=== PATIENT | female | born 1950 | race Caucasian/White ===

== ENCOUNTER 2016-11-27 23:40 | Inpatient (IN) | payer MEDICARE, MEDICAID ==
[2016-11-28 00:24] VITALS: BP 180/70
[2016-11-28] MEDS ORDERED: Magnesium Hydroxide (MOM) 30 mL UDC PO PRN (00:44)
[2016-11-28] MEDS ORDERED: Maalox 30 mL Cup PO PRN (00:44)
[2016-11-28] MEDS ORDERED: Albuterol Nebulizer 2.5mg/3mL HHN PRN ×2 (00:53→13:57)
[2016-11-28] MEDS ORDERED: Multivitamin Tab PO SCH (09:00)
--- NOTE | 2016-11-28 13:57 | Internal Medicine Prog Note ---
Internal Medicine Subjective - Subjective Service Date: 11/28/16 ([id number] hnp dictated) Internal Medicine Objective - Physical Exam Vitals and I&O: Vital Signs Temp 97.1 F 11/28/16 06:44 Pulse 77 11/28/16 07:59 Resp 19 11/28/16 12:01 BP 148/97 11/28/16 06:44 Pulse Ox 96 11/28/16 07:59 Intake & Output 11/27/16 11/28/16 11/28/16 18:59 06:59 18:59 Intake Total 120 Balance 120 Weight (lbs) 198 lb Intake: Oral 120 Other: # Voids 2 Active Medications: Current Medications Acetaminophen (Tylenol) 650 mg PO Q4HR PRN PRN Reason: Mild Pain / Temp above 100 Stop: 01/27/17 00:43 Al Hydrox/Mg Hydrox/Simethicone (Maalox) 30 ml PO Q4HR PRN PRN Reason: GI DISTRESS Stop: 01/27/17 00:43 Albuterol Sulfate (Albuterol 2.5mg/3ml Neb Ud) 2.5 mg HHN Q4H PRN PRN Reason: Shortness of Breath Stop: 01/27/17 00:52 Lorazepam (Ativan) 0.5 mg PO Q4HR PRN; Protocol PRN Reason: Anxiety Stop: 12/28/16 00:43 Magnesium Hydroxide (Milk Of Magnesia) 30 ml PO HS PRN PRN Reason: Constipation Multivitamins/Vitamin C (Theragran) 1 tab PO DAILY [facility] Stop: 01/27/17 08:59 Last Admin: 11/28/16 09:28 Dose: 1 tab Sertraline HCl (Zoloft) 50 mg PO DAILY [facility] PRN Reason: Protocol Stop: 01/27/17 08:59 Last Admin: 11/28/16 09:28 Dose: 50 mg Zolpidem Tartrate (Ambien) 5 mg PO HS PRN PRN Reason: Insomnia Stop: 01/27/17 00:43 Internal Medicine Assmt/Plan - Assessment Assessment: DEPRESSION ASTHMA COPD CHRONIC LOW BACK PAIN CHRONIC LEG PAIN HYPERCHOLESTEREMIA FIBROMYALGIA HTN HYPOTHYROID CHANDAN SINUSITIS CHRONIC SPINAL STENOSIS SCHIZOAFFECTIVE DISORDER
--- NOTE | 2016-11-28 14:19 | History & Physical ---
ADMIT DATE: 11/28/2016 CHIEF COMPLAINT: Medical evaluation and clearance on the patient who was admitted inpatient Psych. HISTORY OF PRESENT ILLNESS: This is a 66-year-old female who is a transfer from [facility] here to the [facility] for depression. The patient has a past medical history of COPD, asthma, arthritis, acute renal failure, acute respiratory failure, bipolar disorder, depression, fibromyalgia, frequent falls, generalized weakness, hypertension, hypercholesterolemia, hypothyroid, chronic leg pain and chronic low back pain, sinusitis, chronic spinal stenosis, UTI. PAST MEDICAL HISTORY: As mentioned in history of present illness. PAST SURGICAL HISTORY: Unknown. FAMILY HISTORY: Noncontributory. SOCIAL HISTORY: The patient denies any smoking, drinking, or any illicit drug usage. REVIEW OF SYSTEMS: GENERAL: Denies any fevers, any chills. CARDIOVASCULAR: Denies any chest pain. RESPIRATORY: Denies any shortness of breath or cough. GASTROINTESTINAL: Denies any nausea, vomiting, abdominal pain. GENITOURINARY: Denies any increased frequency or dysuria. All other systems are reviewed by me and are negative. PHYSICAL EXAMINATION: GENERAL: The patient is well developed, well nourished, no acute distress. VITAL SIGNS: Temperature 97.1, heart rate 70, respirations 19, blood pressure ____/97, O2 95%. HEENT: Head; normocephalic, atraumatic. NECK: Supple. No mass. LUNGS: Clear bilaterally. HEART: Regular rate and rhythm. ABDOMEN: Soft, nontender. ASSESSMENT: 1. Depression. 2. Asthma. 3. Chronic obstructive pulmonary disease. 4. History of falls. 5. Fibromyalgia. 6. Hypertension. 7. Hypercholesterolemia. 8. Hypothyroidism. 9. Chronic leg pain and chronic back pain. 10. Obstructive sleep apnea. 11. Sinusitis. 12. Spinal stenosis. PLAN: We will put on p.r.n. bronchodilator, supplemental oxygen as needed. The patient to continue her home medications. We will continue to follow this patient. JOB# [id number]
[2016-11-28] MEDS: Budesonide 0.5 Mg/2 mL Ud HHN SCH (20:46)
[2016-11-28] MEDS: Guaifenesin DM 10 ML UDC PO SCH (20:56)
[2016-11-29] MEDS: Guaifenesin DM 10 ML UDC PO SCH ×4 (06:30→20:00)
[2016-11-29] MEDS: Budesonide 0.5 Mg/2 mL Ud HHN SCH ×2 (06:36→20:23)
[2016-11-29] MEDS: Levothyroxine 0.1 Mg Tab PO SCH (06:36)
[2016-11-29] MEDS ORDERED: HYDROCHLOROTHIAZIDE PO SCH (09:00)
[2016-11-29] MEDS ORDERED: LISINOPRIL PO SCH (09:00)
[2016-11-29] MEDS ORDERED: [UNRECOGNIZED DRUG - OTHER] PO SCH (09:00)
[2016-11-29] MEDS: Multivitamin Tab PO SCH (09:06)
[2016-11-29] MEDS: Pantoprazole 40 mg EC Tab PO SCH (09:08)
[2016-11-29] MEDS: Albuterol Nebulizer 2.5mg/3mL HHN PRN (09:49)
--- NOTE | 2016-11-29 12:07 | Progress Notes ---
DATE: 11/29/2016 PSYCHIATRIC PROGRESS NOTE TIME SEEN: 10:45 a.m. SUBJECTIVE: Staff was spoken to. The patient is interviewed. Mood is noted to be anxious. The patient's insight and judgment are noted to be still impaired. Impulse control is noted to be poor. The patient is still suicidal. No homicidal ideation is noted. The patient is currently on the Lamictal and Zoloft and has been able to tolerate the medications. No side effects to the medications are noted. ASSESSMENT: The patient is stabilizing. PLAN: The patient is going to be closely monitored. Once stabilized, the patient is going to be discharged to self, verbalize the concerns rather than to act out. The patient at this time is not presenting as a danger to self or others. JOB# [id number]
--- NOTE | 2016-11-29 12:54 | Internal Medicine Prog Note ---
Internal Medicine Subjective - Subjective Service Date: 11/29/16 Patient seen and examined:: with staff Patient is:: awake Per staff patient has:: no adverse event Internal Medicine Objective - Physical Exam Vitals and I&O: Vital Signs Temp 97.7 F 11/29/16 06:55 Pulse 73 11/29/16 09:50 Resp 18 11/29/16 09:50 BP 160/90 11/29/16 09:09 Pulse Ox 96 11/29/16 09:50 Intake & Output 11/28/16 11/29/16 11/29/16 18:59 06:59 18:59 Intake Total 240 Balance 240 Intake: Oral 240 Other: # Voids 3 Active Medications: Current Medications Acetaminophen (Tylenol) 650 mg PO Q4HR PRN PRN Reason: Mild Pain / Temp above 100 Stop: 01/27/17 00:43 Al Hydrox/Mg Hydrox/Simethicone (Maalox) 30 ml PO Q4HR PRN PRN Reason: GI DISTRESS Stop: 01/27/17 00:43 Albuterol Sulfate (Albuterol 2.5mg/3ml Neb Ud) 2.5 mg HHN Q4HR PRN PRN Reason: Shortness of Breath Stop: 01/27/17 13:56 Last Admin: 11/29/16 09:49 Dose: 2.5 mg Albuterol/Ipratropium (Duoneb Neb) 3 ml HHN Q6HRT [facility] Stop: 01/28/17 18:59 Budesonide (Pulmicort) 0.5 mg HHN BIDRT [facility] Stop: 01/27/17 18:59 Last Admin: 11/29/16 06:36 Dose: 0.5 mg Carvedilol (Coreg) 12.5 mg PO BID [facility] Stop: 01/27/17 16:59 Last Admin: 11/29/16 09:08 Dose: 12.5 mg Cholecalciferol (Vitamin D3) 2,000 iu PO DAILY [facility] Stop: 01/28/17 08:59 Last Admin: 11/29/16 09:10 Dose: 2,000 iu Gabapentin (Neurontin) 400 mg PO QID [facility] Stop: 01/27/17 16:59 Last Admin: 11/29/16 09:08 Dose: 400 mg Guaifenesin/Dextromethorphan (Robitussin Dm) 5 ml PO Q6H [facility] Stop: 01/27/17 13:59 Last Admin: 11/29/16 09:10 Dose: Not Given Hydrochlorothiazide (Hctz) 12.5 mg PO DAILY [facility] Stop: 01/28/17 08:59 Last Admin: 11/29/16 09:06 Dose: 12.5 mg Lamotrigine (Lamictal) 200 mg PO TID [facility] Stop: 01/27/17 13:59 Last Admin: 11/29/16 09:55 Dose: 200 mg Levothyroxine Sodium (Synthroid) 0.1 mg PO QDAC [facility] Stop: 01/28/17 07:29 Last Admin: 11/29/16 06:36 Dose: 0.1 mg Lisinopril (Zestril) 20 mg PO DAILY [facility] Stop: 01/28/17 08:59 Last Admin: 11/29/16 09:09 Dose: 20 mg Loratadine (Claritin) 10 mg PO DAILY [facility] Stop: 01/28/17 08:59 Last Admin: 11/29/16 09:10 Dose: 10 mg Lorazepam (Ativan) 0.5 mg PO Q4HR PRN; Protocol PRN Reason: Anxiety Stop: 12/28/16 00:43 Magnesium Hydroxide (Milk Of Magnesia) 30 ml PO HS PRN PRN Reason: Constipation Magnesium Oxide (Mag-Oxide) 400 mg PO HS [facility] Stop: 01/27/17 20:59 Last Admin: 11/28/16 20:56 Dose: 400 mg Miscellaneous (Cyclosporine [Restasis]) 0.05 % EACH EYE Q12HR [facility] Stop: 01/27/17 20:59 Montelukast Sodium (Singulair) 10 mg PO HS [facility] Stop: 01/27/17 20:59 Last Admin: 11/28/16 20:56 Dose: 10 mg Multivitamins/Vitamin C (Theragran) 1 tab PO DAILY [facility] Stop: 01/28/17 08:59 Last Admin: 11/29/16 09:06 Dose: 1 tab Pantoprazole Sodium (Protonix) 40 mg PO DAILY [facility] Stop: 01/28/17 08:59 Last Admin: 11/29/16 09:08 Dose: 40 mg Sertraline HCl (Zoloft) 50 mg PO DAILY [facility] PRN Reason: Protocol Stop: 09/25/17 08:59 Zolpidem Tartrate (Ambien) 5 mg PO HS PRN PRN Reason: Insomnia Stop: 01/27/17 00:43 Last Admin: 11/28/16 23:19 Dose: 5 mg General: alert, obese, NAD HEENT: NC/AT, PERRLA Lungs: CTAB Cardiovascular: RRR, Normal S1, Normal S2, without murmur Abdomen: soft, non-tender, non-distended Extremities: excoriation Neurological: no change, alert Internal Medicine Assmt/Plan - Assessment Assessment: DEPRESSION ASTHMA COPD CHRONIC LOW BACK PAIN CHRONIC LEG PAIN HYPERCHOLESTEREMIA FIBROMYALGIA HTN HYPOTHYROID CHANDAN SINUSITIS CHRONIC SPINAL STENOSIS SCHIZOAFFECTIVE DISORDER - Plan Plan: supplemental o2 as needed bronchodilators continue current tx
--- NOTE | 2016-11-29 13:04 | History & Physical ---
ADMIT DATE: 11/29/2016 PATIENT IDENTIFICATION: A 66-year-old female. REQUESTING PHYSICIAN: Dr. Pierre. CHIEF COMPLAINT: "I came here because of my depression, because I can walk." HISTORY OF PRESENT ILLNESS: This 66-year-old female has been followed by myself, as well as Dr. Pierre, presented initially at [facility] because the patient was feeling depressed and suicidal. The patient was evaluated and subsequently transferred to [facility]. PAST MEDICAL HISTORY: Remarkable for: 1. COPD. 2. Chronic back pain. 3. Status post pain pump placement. 4. Psychotic disorder. 5. DJD. 6. Adrenal adenoma. 7. Hypertension. 8. Hypothyroidism. 9. Hyperlipidemia. 10. History of allergic rhinosinusitis and chronic spinal stenosis. 11. Fibromyalgia. MEDICATIONS: Medication list has been reviewed and reconciled appropriately. ALLERGIES: The patient is not allergic to any medication. SOCIAL HISTORY: The patient lives by herself. The patient has no history of smoking cigarette, alcohol or drug use. FAMILY MEDICAL HISTORY: Remarkable for diabetes and hypertension. REVIEW OF SYSTEMS: The patient currently denies any headache, blurred vision, double vision, dysphagia, odynophagia, runny nose, stuffy nose, fever, chills, cough, chest pain, shortness of breath, palpitations, dizziness, nausea, vomiting, diarrhea, dysuria, hematuria, hematochezia, melena. No history of any seizure or syncopal episode. PHYSICAL EXAMINATION: GENERAL: The patient is alert, awake, oriented, lying in the bed without any acute distress. VITAL SIGNS: Temperature 97.6, pulse is 70, respiratory rate is 20, blood pressure 163/90. SKIN: Warm to touch. Very good skin turgor. No petechiae, no purpura. HEENT: Normocephalic, atraumatic. Extraocular muscles are intact. Tongue was pink and coated. Poor dentition noted. No oral lesions, no exudate. No sinus tenderness. External auditory canals and tympanic canals were well visualized. NECK: Supple, no JVD, no hepatojugular reflux. No lymphadenopathy, thyromegaly or carotid bruit. HEART: Both heart sounds are regular. No S3, no S4, no murmur. CHEST: Lung equal in expansion, no wheezing, no crackles. ABDOMEN: Soft. No guarding, no rigidity. Liver, spleen ____ palpable. No palpable mass. Palpable pain pump noted. Bowel sounds are present. EXTREMITIES: No edema, no cyanosis. NEUROLOGIC: Alert, awake, oriented to time, place, person, 2-12 cranial nerves are intact. Power in upper and lower extremities, 5+. Sensation to touch are intact. Babinskis in both toes are going down. No cerebral sign. AVAILABLE DIAGNOSTIC DATA: Has been reviewed. CLINICAL IMPRESSION: 1. Acute exacerbation of psychotic disorder. 2. Chronic obstructive pulmonary disease. 3. Hypertension. 4. Fibromyalgia. 5. Hyperlipidemia. 6. Hypothyroidism. 7. Degenerative joint disease. 8. Chronic pain syndrome. 9. History of myelodysplastic syndrome. 10. Fall risk. 11. History of recurrent psychiatric hospitalization. 12. Asthma. PLAN: 1. Psychiatric evaluation and management deferred to psychiatrist. 2. Appropriate home medicine reconciliation. 3. Fall precaution. 4. Pain management. 5. General nursing care. 6. We will continue to follow this patient during the stay at the [facility]. 7. Care plan has been reviewed and discussed with staff as well. JOB# [id number]
[2016-11-29] MEDS: Albuterol/Ipratropium Neb 3 ML AERS HHN SCH (20:29)
[2016-11-30] MEDS: Guaifenesin DM 10 ML UDC PO SCH ×5 (02:00→20:40)
[2016-11-30] MEDS: Levothyroxine 0.1 Mg Tab PO SCH (06:46)
[2016-11-30] MEDS: Albuterol/Ipratropium Neb 3 ML AERS HHN SCH ×2 (06:55→14:18)
[2016-11-30] MEDS: Budesonide 0.5 Mg/2 mL Ud HHN SCH ×2 (06:55→19:28)
[2016-11-30] MEDS: Pantoprazole 40 mg EC Tab PO SCH (09:25)
[2016-11-30] MEDS: Multivitamin Tab PO SCH (09:26)
--- NOTE | 2016-11-30 12:20 | Internal Medicine Prog Note ---
Internal Medicine Subjective - Subjective Service Date: 11/30/16 Patient is:: awake Per staff patient has:: no adverse event Internal Medicine Objective - Physical Exam Vitals and I&O: Vital Signs Temp 98.1 F 11/30/16 06:27 Pulse 60 11/30/16 09:25 Resp 20 11/30/16 07:02 BP 113/64 11/30/16 09:25 Pulse Ox 97 11/30/16 07:02 Intake & Output 11/29/16 11/30/16 11/30/16 18:59 06:59 18:59 Intake Total 1100 180 Balance 1100 180 Weight (lbs) 191 lb 4.8 oz Intake: Oral 1100 180 Other: # Voids 3 2 # Bowel Movements 1 0 Active Medications: Current Medications Acetaminophen (Tylenol) 650 mg PO Q4HR PRN PRN Reason: Mild Pain / Temp above 100 Stop: 01/27/17 00:43 Al Hydrox/Mg Hydrox/Simethicone (Maalox) 30 ml PO Q4HR PRN PRN Reason: GI DISTRESS Stop: 01/27/17 00:43 Albuterol Sulfate (Albuterol 2.5mg/3ml Neb Ud) 2.5 mg HHN Q4HR PRN PRN Reason: Shortness of Breath Stop: 01/27/17 13:56 Last Admin: 11/29/16 09:49 Dose: 2.5 mg Albuterol/Ipratropium (Duoneb Neb) 3 ml HHN Q6HRT [facility] Stop: 01/28/17 18:59 Last Admin: 11/30/16 06:55 Dose: 3 ml Budesonide (Pulmicort) 0.5 mg HHN BIDRT [facility] Stop: 01/27/17 18:59 Last Admin: 11/30/16 06:55 Dose: 0.5 mg Carvedilol (Coreg) 12.5 mg PO BID [facility] Stop: 01/27/17 16:59 Last Admin: 11/30/16 09:24 Dose: 12.5 mg Cholecalciferol (Vitamin D3) 2,000 iu PO DAILY [facility] Stop: 01/28/17 08:59 Last Admin: 11/30/16 09:23 Dose: 2,000 iu Gabapentin (Neurontin) 400 mg PO QID [facility] Stop: 01/27/17 16:59 Last Admin: 11/30/16 09:24 Dose: 400 mg Guaifenesin/Dextromethorphan (Robitussin Dm) 5 ml PO Q6H [facility] Stop: 01/27/17 13:59 Last Admin: 11/30/16 08:50 Dose: 5 ml Hydrochlorothiazide (Hctz) 12.5 mg PO DAILY [facility] Stop: 01/28/17 08:59 Last Admin: 11/30/16 09:24 Dose: 12.5 mg Isosorbide Mononitrate (Imdur) 30 mg PO DAILY [facility] Stop: 01/29/17 08:59 Last Admin: 11/30/16 09:25 Dose: 30 mg Lamotrigine (Lamictal) 200 mg PO TID [facility] Stop: 01/27/17 13:59 Last Admin: 11/30/16 09:26 Dose: 200 mg Levothyroxine Sodium (Synthroid) 0.1 mg PO QDAC [facility] Stop: 01/28/17 07:29 Last Admin: 11/30/16 06:46 Dose: 0.1 mg Lisinopril (Zestril) 20 mg PO DAILY [facility] Stop: 01/28/17 08:59 Last Admin: 11/30/16 09:23 Dose: 20 mg Loratadine (Claritin) 10 mg PO DAILY [facility] Stop: 01/28/17 08:59 Last Admin: 11/30/16 09:26 Dose: 10 mg Lorazepam (Ativan) 0.5 mg PO Q4HR PRN; Protocol PRN Reason: Anxiety Stop: 12/28/16 00:43 Last Admin: 11/29/16 14:25 Dose: 0.5 mg Magnesium Hydroxide (Milk Of Magnesia) 30 ml PO HS PRN PRN Reason: Constipation Magnesium Oxide (Mag-Oxide) 400 mg PO HS [facility] Stop: 01/27/17 20:59 Last Admin: 11/29/16 20:09 Dose: 400 mg Miscellaneous (Cyclosporine [Restasis]) 0.05 % EACH EYE Q12HR [facility] Stop: 01/27/17 20:59 Montelukast Sodium (Singulair) 10 mg PO HS [facility] Stop: 01/27/17 20:59 Last Admin: 11/29/16 20:09 Dose: 10 mg Multivitamins/Vitamin C (Theragran) 1 tab PO DAILY [facility] Stop: 01/28/17 08:59 Last Admin: 11/30/16 09:26 Dose: 1 tab Pantoprazole Sodium (Protonix) 40 mg PO DAILY [facility] Stop: 01/28/17 08:59 Last Admin: 11/30/16 09:25 Dose: 40 mg Sertraline HCl (Zoloft) 50 mg PO DAILY [facility] PRN Reason: Protocol Stop: 01/28/17 08:59 Last Admin: 11/30/16 09:23 Dose: 50 mg Zolpidem Tartrate (Ambien) 5 mg PO HS PRN PRN Reason: Insomnia Stop: 01/27/17 00:43 Last Admin: 11/28/16 23:19 Dose: 5 mg General: alert, obese, NAD HEENT: NC/AT, PERRLA Lungs: CTAB Cardiovascular: RRR, Normal S1, Normal S2, without murmur Abdomen: soft, non-tender, non-distended Extremities: excoriation Neurological: no change, alert Internal Medicine Assmt/Plan - Assessment Assessment: DEPRESSION ASTHMA COPD CHRONIC LOW BACK PAIN CHRONIC LEG PAIN HYPERCHOLESTEREMIA FIBROMYALGIA HTN HYPOTHYROID CHANDAN SINUSITIS CHRONIC SPINAL STENOSIS SCHIZOAFFECTIVE DISORDER - Plan Plan: supplemental o2 as needed bronchodilators continue current tx Nutritional Asmnt/Malnutr-PDOC - Dietary Evaluation Malnutrition Findings (Please click <Entered> for more info): Nutritional Asmnt/Malnutrition Start: 11/29/16 16: 29 Text: Status: Complete Freq: Document 11/29/16 16:29 GSUN (Rec: 11/29/16 16:33 [email or web address] [email or web address]) Nutritional Asmnt/Malnutrition Patient General Information Nutritional Screening Moderate Risk Screening Diagnosis Reason for visit: psychosis Pertinent Medical Hx/Surgical Hx COPD, asthma, arthritis, acute renal failure, acute respiratory failure, bipolar disorder, depression, fibromyalgia, frequent falls, generalized weakness, HTN, hyperchoelsterolemia, hypothyroid, chronic leg pain, chronic low back pain, sinusitis, chronic spinal stenosis, UTI Subjective Information 66 year old female. Pt ambulates in wheelchair. Pt was alert and pelasant during visit. Pt reported mandaeism preferences: no fish, no prok, no caffeine, FNS notified. Pt reported 250lb last year, pt has goal to lose weight, RD emphasized health weight loss goals, pt undersoot and agreed . Pt with good appetite, stated was hungry during visit . Teeth intact. Avg PO intake 100% of meals since adm, meeting nutritional needs. Current Diet Order/ Nutrition Support Low sodium Pertinent Medications Vitamin D3, Hctz, Synthroid, MOM, Mag-Oxide, Theragran, Protonix Pertinent Labs No current labs. Nutritional Hx/Data Height 5 ft 2 in Height (Calculated Centimeters) 157.5 Current Weight (lbs) 191 lb 4.8 oz Weight (Calculated Kilograms) 86.8 Weight (Calculated Grams) 69876.2 Usual body Weight (lbs) 195 [place] Body Weight 110 Weight Status Obese GI Symptoms Cultural/Ethnic/[employer]ist Belief [employer] preference: no pork, no fish, no caffeine. Skin Integrity/Comment: Nghia 19. Skin intact. Current %PO Good (75-100%) Estimated Nutritional Goals BEE in Kcals: Adj wt of IBW Calories/Kcals/Kg AdjBW 130.3lb/59.2kg Kcals Calculated 1480-1776kcal (25-30kcal/kg) Protein: Adj wt of IBW Protein Calculated 59g (1g/kg) Fluid: ml 1480-1776ml (1ml/kcal) Nutritional Problem 1. Problem Problem No nutritional problem at this time. Intervention/Recommendation Comments 1. Continue with current diet order. Avg PO intake is adequate. 2. Discussed health weight loss goals, pt understood and agreeable to plan. Expected Outcomes/Goals Expected Outcomes/Goals 1. PO intake continue to meet at least 75% of estimated nutritional needs.
[2016-11-30] MEDS: Polyvinyl Alcohol Ophth Soln 15 mL Bottle EACH EYE SCH ×2 (16:27→20:41)
[2016-11-30] MEDS: Albuterol Nebulizer 2.5mg/3mL HHN PRN (19:28)
--- NOTE | 2016-12-01 01:19 | Progress Notes ---
DATE: 11/30/2016 SUBJECTIVE: The patient was seen, chart reviewed, discussed with staff. The patient is feeling depressed, helpless at times, episodes of restlessness. The patient has multiple medical problems including asthma, COPD, history of falls, fibromyalgia, hypertension, spinal stenosis. The patient's ability to care for herself remains impaired. ASSESSMENT AND PLAN: We will continue hospitalization. Continue supportive measures. Continue medication management. Continue the Zoloft 50 mg daily. Monitor condition closely. JOB# [id number]
[2016-12-01] MEDS: Guaifenesin DM 10 ML UDC PO SCH ×4 (02:00→20:57)
[2016-12-01] MEDS: Albuterol/Ipratropium Neb 3 ML AERS HHN SCH ×4 (02:25→20:22)
[2016-12-01] MEDS: Budesonide 0.5 Mg/2 mL Ud HHN SCH ×2 (06:32→20:22)
[2016-12-01] MEDS: Levothyroxine 0.1 Mg Tab PO SCH (06:49)
[2016-12-01] MEDS: Multivitamin Tab PO SCH (08:39)
[2016-12-01] MEDS: Pantoprazole 40 mg EC Tab PO SCH (08:42)
[2016-12-01] MEDS: Polyvinyl Alcohol Ophth Soln 15 mL Bottle EACH EYE SCH ×3 (09:25→20:50)
--- NOTE | 2016-12-01 11:27 | Internal Medicine Prog Note ---
Internal Medicine Subjective - Subjective Service Date: 12/01/16 Patient is:: awake Per staff patient has:: no adverse event Internal Medicine Objective - Physical Exam Vitals and I&O: Vital Signs Temp 97.9 F 11/30/16 18:37 Pulse 65 12/01/16 08:42 Resp 16 12/01/16 10:52 BP 122/82 12/01/16 08:42 Pulse Ox 95 12/01/16 06:50 Intake & Output 11/30/16 12/01/16 12/01/16 18:59 06:59 18:59 Intake Total 1000 Balance 1000 Intake: Oral 1000 Other: # Voids 4 # Bowel Movements 1 Active Medications: Current Medications Acetaminophen (Tylenol) 650 mg PO Q4HR PRN PRN Reason: Mild Pain / Temp above 100 Stop: 01/27/17 00:43 Al Hydrox/Mg Hydrox/Simethicone (Maalox) 30 ml PO Q4HR PRN PRN Reason: GI DISTRESS Stop: 01/27/17 00:43 Albuterol Sulfate (Albuterol 2.5mg/3ml Neb Ud) 2.5 mg HHN Q4HR PRN PRN Reason: Shortness of Breath Stop: 01/27/17 13:56 Last Admin: 11/30/16 19:28 Dose: 2.5 mg Albuterol/Ipratropium (Duoneb Neb) 3 ml HHN Q6HRT [facility] Stop: 01/28/17 18:59 Last Admin: 12/01/16 06:32 Dose: 3 ml Artificial Tears (Artificial Tears Ophth Soln) 1 drop EACH EYE TID [facility] Stop: 01/27/17 20:59 Last Admin: 11/30/16 20:41 Dose: Not Given Budesonide (Pulmicort) 0.5 mg HHN BIDRT [facility] Stop: 01/27/17 18:59 Last Admin: 12/01/16 06:32 Dose: 0.5 mg Carvedilol (Coreg) 12.5 mg PO BID [facility] Stop: 01/27/17 16:59 Last Admin: 12/01/16 08:42 Dose: 12.5 mg Cholecalciferol (Vitamin D3) 2,000 iu PO DAILY [facility] Stop: 01/28/17 08:59 Last Admin: 12/01/16 08:41 Dose: 2,000 iu Gabapentin (Neurontin) 400 mg PO QID [facility] Stop: 01/27/17 16:59 Last Admin: 12/01/16 08:39 Dose: 400 mg Guaifenesin/Dextromethorphan (Robitussin Dm) 5 ml PO Q6H [facility] Stop: 01/27/17 13:59 Last Admin: 12/01/16 08:39 Dose: 5 ml Hydrochlorothiazide (Hctz) 12.5 mg PO DAILY [facility] Stop: 01/28/17 08:59 Last Admin: 12/01/16 08:39 Dose: 12.5 mg Isosorbide Mononitrate (Imdur) 30 mg PO DAILY [facility] Stop: 01/29/17 08:59 Last Admin: 12/01/16 08:41 Dose: 30 mg Lamotrigine (Lamictal) 200 mg PO TID [facility] Stop: 01/27/17 13:59 Last Admin: 12/01/16 08:41 Dose: 200 mg Levothyroxine Sodium (Synthroid) 0.1 mg PO QDAC [facility] Stop: 01/28/17 07:29 Last Admin: 12/01/16 06:49 Dose: 0.1 mg Lisinopril (Zestril) 20 mg PO DAILY [facility] Stop: 01/28/17 08:59 Last Admin: 12/01/16 08:42 Dose: 20 mg Loratadine (Claritin) 10 mg PO DAILY [facility] Stop: 01/28/17 08:59 Last Admin: 12/01/16 08:41 Dose: 10 mg Lorazepam (Ativan) 0.5 mg PO Q4HR PRN; Protocol PRN Reason: Anxiety Stop: 12/28/16 00:43 Last Admin: 11/29/16 14:25 Dose: 0.5 mg Magnesium Hydroxide (Milk Of Magnesia) 30 ml PO HS PRN PRN Reason: Constipation Magnesium Oxide (Mag-Oxide) 400 mg PO HS [facility] Stop: 01/27/17 20:59 Last Admin: 11/30/16 20:42 Dose: 400 mg Montelukast Sodium (Singulair) 10 mg PO HS [facility] Stop: 01/27/17 20:59 Last Admin: 11/30/16 20:42 Dose: 10 mg Multivitamins/Vitamin C (Theragran) 1 tab PO DAILY [facility] Stop: 01/28/17 08:59 Last Admin: 12/01/16 08:39 Dose: 1 tab Pantoprazole Sodium (Protonix) 40 mg PO DAILY [facility] Stop: 01/28/17 08:59 Last Admin: 12/01/16 08:42 Dose: 40 mg Sertraline HCl (Zoloft) 50 mg PO DAILY [facility] PRN Reason: Protocol Stop: 01/28/17 08:59 Last Admin: 12/01/16 08:42 Dose: 50 mg Zolpidem Tartrate (Ambien) 5 mg PO HS PRN PRN Reason: Insomnia Stop: 01/27/17 00:43 Last Admin: 11/28/16 23:19 Dose: 5 mg General: alert, obese, NAD HEENT: NC/AT, PERRLA Lungs: CTAB Cardiovascular: RRR, Normal S1, Normal S2, without murmur Abdomen: soft, non-tender, non-distended Extremities: excoriation Neurological: no change, alert Internal Medicine Assmt/Plan - Assessment Assessment: DEPRESSION ASTHMA COPD CHRONIC LOW BACK PAIN CHRONIC LEG PAIN HYPERCHOLESTEREMIA FIBROMYALGIA HTN HYPOTHYROID CHANDAN SINUSITIS CHRONIC SPINAL STENOSIS SCHIZOAFFECTIVE DISORDER - Plan Plan: supplemental o2 as needed bronchodilators continue current tx Nutritional Asmnt/Malnutr-PDOC - Dietary Evaluation Malnutrition Findings (Please click <Entered> for more info): Nutritional Asmnt/Malnutrition Start: 11/29/16 16: 29 Text: Status: Complete Freq: Document 11/29/16 16:29 GSUN (Rec: 11/29/16 16:33 GSUN [email or web address]) Nutritional Asmnt/Malnutrition Patient General Information Nutritional Screening Moderate Risk Screening Diagnosis Reason for visit: psychosis Pertinent Medical Hx/Surgical Hx COPD, asthma, arthritis, acute renal failure, acute respiratory failure, bipolar disorder, depression, fibromyalgia, frequent falls, generalized weakness, HTN, hyperchoelsterolemia, hypothyroid, chronic leg pain, chronic low back pain, sinusitis, chronic spinal stenosis, UTI Subjective Information 66 year old female. Pt ambulates in wheelchair. Pt was alert and pelasant during visit. Pt reported buddhist preferences: no fish, no prok, no caffeine, FNS notified. Pt reported 250lb last year, pt has goal to lose weight, RD emphasized health weight loss goals, pt undersoot and agreed . Pt with good appetite, stated was hungry during visit . Teeth intact. Avg PO intake 100% of meals since adm, meeting nutritional needs. Current Diet Order/ Nutrition Support Low sodium Pertinent Medications Vitamin D3, Hctz, Synthroid, MOM, Mag-Oxide, Theragran, Protonix Pertinent Labs No current labs. Nutritional Hx/Data Height 5 ft 2 in Height (Calculated Centimeters) 157.5 Current Weight (lbs) 191 lb 4.8 oz Weight (Calculated Kilograms) 86.8 Weight (Calculated Grams) 98852.2 Usual body Weight (lbs) 195 [place] Body Weight 110 Weight Status Obese GI Symptoms Cultural/Ethnic/Roman Catholic Belief Roman Catholic preference: no pork, no fish, no caffeine. Skin Integrity/Comment: Nghia 19. Skin intact. Current %PO Good (75-100%) Estimated Nutritional Goals BEE in Kcals: Adj wt of IBW Calories/Kcals/Kg AdjBW 130.3lb/59.2kg Kcals Calculated 1480-1776kcal (25-30kcal/kg) Protein: Adj wt of IBW Protein Calculated 59g (1g/kg) Fluid: ml 1480-1776ml (1ml/kcal) Nutritional Problem 1. Problem Problem No nutritional problem at this time. Intervention/Recommendation Comments 1. Continue with current diet order. Avg PO intake is adequate. 2. Discussed health weight loss goals, pt understood and agreeable to plan. Expected Outcomes/Goals Expected Outcomes/Goals 1. PO intake continue to meet at least 75% of estimated nutritional needs.
--- NOTE | 2016-12-01 21:14 | Progress Notes ---
DATE: 12/01/2016 SUBJECTIVE: The patient was seen, discussed with staff. Remains isolative, still with psychomotor slowing still feeling depressed, sad facial expression, elevated interested in her surroundings. Thought process is concrete. ASSESSMENT: The patient is still severely depressed. PLAN: Continue hospitalization. Continue medication management. Continue supportive measures. Continue Zoloft 50 mg daily. JOB# [id number]
[2016-12-02] MEDS: Albuterol/Ipratropium Neb 3 ML AERS HHN SCH ×4 (00:58→20:13)
[2016-12-02] MEDS: Guaifenesin DM 10 ML UDC PO SCH ×4 (02:00→20:03)
[2016-12-02] MEDS: Budesonide 0.5 Mg/2 mL Ud HHN SCH ×2 (07:13→20:12)
[2016-12-02] MEDS: Polyvinyl Alcohol Ophth Soln 15 mL Bottle EACH EYE SCH ×3 (08:42→20:04)
[2016-12-02] MEDS: Pantoprazole 40 mg EC Tab PO SCH (08:45)
[2016-12-02] MEDS: Multivitamin Tab PO SCH (08:45)
--- NOTE | 2016-12-02 13:22 | Internal Medicine Prog Note ---
Internal Medicine Subjective - Subjective Service Date: 12/02/16 Patient is:: awake Per staff patient has:: no adverse event Internal Medicine Objective - Physical Exam Vitals and I&O: Vital Signs Temp 97.1 F 12/02/16 06:28 Pulse 72 12/02/16 08:44 Resp 16 12/02/16 07:40 BP 137/76 12/02/16 08:44 Pulse Ox 98 12/02/16 07:40 Intake & Output 12/01/16 12/02/16 12/02/16 18:59 06:59 18:59 Intake Total 1800 120 Balance 1800 120 Intake: Oral 1800 120 Other: # Voids 4 3 # Bowel Movements 0 Active Medications: Current Medications Acetaminophen (Tylenol) 650 mg PO Q4HR PRN PRN Reason: Mild Pain / Temp above 100 Stop: 01/27/17 00:43 Al Hydrox/Mg Hydrox/Simethicone (Maalox) 30 ml PO Q4HR PRN PRN Reason: GI DISTRESS Stop: 01/27/17 00:43 Albuterol Sulfate (Albuterol 2.5mg/3ml Neb Ud) 2.5 mg HHN Q4HR PRN PRN Reason: Shortness of Breath Stop: 01/27/17 13:56 Last Admin: 11/30/16 19:28 Dose: 2.5 mg Albuterol/Ipratropium (Duoneb Neb) 3 ml HHN Q6HRT [facility] Stop: 01/28/17 18:59 Last Admin: 12/02/16 13:21 Dose: 3 ml Artificial Tears (Artificial Tears Ophth Soln) 1 drop EACH EYE TID [facility] Stop: 01/27/17 20:59 Last Admin: 12/02/16 08:42 Dose: 1 drop Budesonide (Pulmicort) 0.5 mg HHN BIDRT [facility] Stop: 01/27/17 18:59 Last Admin: 12/02/16 07:13 Dose: 0.5 mg Carvedilol (Coreg) 12.5 mg PO BID [facility] Stop: 01/27/17 16:59 Last Admin: 12/02/16 08:42 Dose: 12.5 mg Cholecalciferol (Vitamin D3) 2,000 iu PO DAILY [facility] Stop: 01/28/17 08:59 Last Admin: 12/02/16 08:43 Dose: 2,000 iu Gabapentin (Neurontin) 400 mg PO QID [facility] Stop: 01/27/17 16:59 Last Admin: 12/02/16 08:43 Dose: 400 mg Guaifenesin/Dextromethorphan (Robitussin Dm) 5 ml PO Q6H [facility] Stop: 01/27/17 13:59 Last Admin: 12/02/16 08:42 Dose: Not Given Hydrochlorothiazide (Hctz) 12.5 mg PO DAILY [facility] Stop: 01/28/17 08:59 Last Admin: 12/02/16 08:44 Dose: 12.5 mg Isosorbide Mononitrate (Imdur) 30 mg PO DAILY [facility] Stop: 01/29/17 08:59 Last Admin: 12/02/16 08:44 Dose: 30 mg Lamotrigine (Lamictal) 200 mg PO TID [facility] Stop: 01/27/17 13:59 Last Admin: 12/02/16 08:41 Dose: 200 mg Levothyroxine Sodium (Synthroid) 0.1 mg PO QDAC [facility] Stop: 01/28/17 07:29 Last Admin: 12/01/16 06:49 Dose: 0.1 mg Lisinopril (Zestril) 20 mg PO DAILY [facility] Stop: 01/28/17 08:59 Last Admin: 12/02/16 08:44 Dose: 20 mg Loratadine (Claritin) 10 mg PO DAILY [facility] Stop: 01/28/17 08:59 Last Admin: 12/02/16 08:45 Dose: 10 mg Lorazepam (Ativan) 0.5 mg PO Q4HR PRN; Protocol PRN Reason: Anxiety Stop: 12/28/16 00:43 Last Admin: 11/29/16 14:25 Dose: 0.5 mg Magnesium Hydroxide (Milk Of Magnesia) 30 ml PO HS PRN PRN Reason: Constipation Magnesium Oxide (Mag-Oxide) 400 mg PO HS [facility] Stop: 01/27/17 20:59 Last Admin: 12/01/16 20:51 Dose: 400 mg Montelukast Sodium (Singulair) 10 mg PO HS [facility] Stop: 01/27/17 20:59 Last Admin: 12/01/16 20:51 Dose: 10 mg Multivitamins/Vitamin C (Theragran) 1 tab PO DAILY [facility] Stop: 01/28/17 08:59 Last Admin: 12/02/16 08:45 Dose: 1 tab Pantoprazole Sodium (Protonix) 40 mg PO DAILY [facility] Stop: 01/28/17 08:59 Last Admin: 12/02/16 08:45 Dose: 40 mg Sertraline HCl (Zoloft) 50 mg PO DAILY [facility] PRN Reason: Protocol Stop: 01/28/17 08:59 Last Admin: 12/02/16 08:45 Dose: 50 mg Zolpidem Tartrate (Ambien) 5 mg PO HS PRN PRN Reason: Insomnia Stop: 01/27/17 00:43 Last Admin: 12/02/16 02:57 Dose: 5 mg General: alert, obese, NAD HEENT: NC/AT, PERRLA Lungs: CTAB Cardiovascular: RRR, Normal S1, Normal S2, without murmur Abdomen: soft, non-tender, non-distended Extremities: excoriation Neurological: no change, alert Internal Medicine Assmt/Plan - Assessment Assessment: DEPRESSION ASTHMA COPD CHRONIC LOW BACK PAIN CHRONIC LEG PAIN HYPERCHOLESTEREMIA FIBROMYALGIA HTN HYPOTHYROID CHANDAN SINUSITIS CHRONIC SPINAL STENOSIS SCHIZOAFFECTIVE DISORDER - Plan Plan: supplemental o2 as needed bronchodilators continue current tx Nutritional Asmnt/Malnutr-PDOC - Dietary Evaluation Malnutrition Findings (Please click <Entered> for more info): Nutritional Asmnt/Malnutrition Start: 11/29/16 16: 29 Text: Status: Complete Freq: Document 11/29/16 16:29 GSUN (Rec: 11/29/16 16:33 GSUN [email or web address]) Nutritional Asmnt/Malnutrition Patient General Information Nutritional Screening Moderate Risk Screening Diagnosis Reason for visit: psychosis Pertinent Medical Hx/Surgical Hx COPD, asthma, arthritis, acute renal failure, acute respiratory failure, bipolar disorder, depression, fibromyalgia, frequent falls, generalized weakness, HTN, hyperchoelsterolemia, hypothyroid, chronic leg pain, chronic low back pain, sinusitis, chronic spinal stenosis, UTI Subjective Information 66 year old female. Pt ambulates in wheelchair. Pt was alert and pelasant during visit. Pt reported buddhist preferences: no fish, no prok, no caffeine, FNS notified. Pt reported 250lb last year, pt has goal to lose weight, RD emphasized health weight loss goals, pt undersoot and agreed . Pt with good appetite, stated was hungry during visit . Teeth intact. Avg PO intake 100% of meals since adm, meeting nutritional needs. Current Diet Order/ Nutrition Support Low sodium Pertinent Medications Vitamin D3, Hctz, Synthroid, MOM, Mag-Oxide, Theragran, Protonix Pertinent Labs No current labs. Nutritional Hx/Data Height 5 ft 2 in Height (Calculated Centimeters) 157.5 Current Weight (lbs) 191 lb 4.8 oz Weight (Calculated Kilograms) 86.8 Weight (Calculated Grams) 33541.2 Usual body Weight (lbs) 195 [place] Body Weight 110 Weight Status Obese GI Symptoms Cultural/Ethnic/Hindu Belief Hindu preference: no pork, no fish, no caffeine. Skin Integrity/Comment: Nghia 19. Skin intact. Current %PO Good (75-100%) Estimated Nutritional Goals BEE in Kcals: Adj wt of IBW Calories/Kcals/Kg AdjBW 130.3lb/59.2kg Kcals Calculated 1480-1776kcal (25-30kcal/kg) Protein: Adj wt of IBW Protein Calculated 59g (1g/kg) Fluid: ml 1480-1776ml (1ml/kcal) Nutritional Problem 1. Problem Problem No nutritional problem at this time. Intervention/Recommendation Comments 1. Continue with current diet order. Avg PO intake is adequate. 2. Discussed health weight loss goals, pt understood and agreeable to plan. Expected Outcomes/Goals Expected Outcomes/Goals 1. PO intake continue to meet at least 75% of estimated nutritional needs.
[2016-12-03] MEDS: Albuterol/Ipratropium Neb 3 ML AERS HHN SCH ×3 (01:40→18:43)
--- NOTE | 2016-12-03 03:56 | Progress Notes ---
DATE: 12/02/2016 SUBJECTIVE: The patient was seen, discussed with staff, chart reviewed. Still feeling depressed, anxious, still isolative, lack of interested in her surroundings . The patient's insight remains limited. The patient's p.o. intake . ASSESSMENT: The patient continues to be severely depressed. PLAN: We will continue hospitalization, continue stabilization, continue Zoloft 50 mg daily. [facility]# [id number]
[2016-12-03] MEDS: Guaifenesin DM 10 ML UDC PO SCH ×5 (06:33→21:44)
[2016-12-03] MEDS: Levothyroxine 0.1 Mg Tab PO SCH (06:34)
[2016-12-03] MEDS: Budesonide 0.5 Mg/2 mL Ud HHN SCH ×2 (07:18→18:43)
[2016-12-03] MEDS: Pantoprazole 40 mg EC Tab PO SCH (09:06)
[2016-12-03] MEDS: Multivitamin Tab PO SCH (09:06)
[2016-12-03] MEDS: Polyvinyl Alcohol Ophth Soln 15 mL Bottle EACH EYE SCH ×3 (09:06→21:45)
--- NOTE | 2016-12-03 13:10 | Internal Medicine Prog Note ---
Internal Medicine Subjective - Subjective Service Date: 12/03/16 Patient is:: awake Per staff patient has:: no adverse event Internal Medicine Objective - Physical Exam Vitals and I&O: Vital Signs Temp 97.2 F 12/03/16 06:33 Pulse 64 12/03/16 07:18 Resp 18 12/03/16 07:18 BP 147/64 12/03/16 06:33 Pulse Ox 96 12/03/16 07:18 Intake & Output 12/02/16 12/03/16 12/03/16 18:59 06:59 18:59 Intake Total 120 Balance 120 Intake: Oral 120 Other: # Voids 3 Active Medications: Current Medications Acetaminophen (Tylenol) 650 mg PO Q4HR PRN PRN Reason: Mild Pain / Temp above 100 Stop: 01/27/17 00:43 Al Hydrox/Mg Hydrox/Simethicone (Maalox) 30 ml PO Q4HR PRN PRN Reason: GI DISTRESS Stop: 01/27/17 00:43 Albuterol Sulfate (Albuterol 2.5mg/3ml Neb Ud) 2.5 mg HHN Q4HR PRN PRN Reason: Shortness of Breath Stop: 01/27/17 13:56 Last Admin: 11/30/16 19:28 Dose: 2.5 mg Albuterol/Ipratropium (Duoneb Neb) 3 ml HHN Q6HRT [facility] Stop: 01/28/17 18:59 Last Admin: 12/03/16 01:40 Dose: 3 ml Artificial Tears (Artificial Tears Ophth Soln) 1 drop EACH EYE TID [facility] Stop: 01/27/17 20:59 Last Admin: 12/03/16 09:06 Dose: 1 drop Budesonide (Pulmicort) 0.5 mg HHN BIDRT [facility] Stop: 01/27/17 18:59 Last Admin: 12/03/16 07:18 Dose: 0.5 mg Carvedilol (Coreg) 12.5 mg PO BID [facility] Stop: 01/27/17 16:59 Last Admin: 12/03/16 09:11 Dose: Not Given Cholecalciferol (Vitamin D3) 2,000 iu PO DAILY [facility] Stop: 01/28/17 08:59 Last Admin: 12/03/16 09:05 Dose: 2,000 iu Gabapentin (Neurontin) 400 mg PO QID [facility] Stop: 01/27/17 16:59 Last Admin: 12/03/16 09:06 Dose: 400 mg Guaifenesin/Dextromethorphan (Robitussin Dm) 5 ml PO Q6H [facility] Stop: 01/27/17 13:59 Last Admin: 12/03/16 09:06 Dose: Not Given Hydrochlorothiazide (Hctz) 12.5 mg PO DAILY [facility] Stop: 01/28/17 08:59 Last Admin: 12/03/16 09:07 Dose: Not Given Isosorbide Mononitrate (Imdur) 30 mg PO DAILY [facility] Stop: 01/29/17 08:59 Last Admin: 12/03/16 09:07 Dose: Not Given Lamotrigine (Lamictal) 200 mg PO TID [facility] Stop: 01/27/17 13:59 Last Admin: 12/03/16 09:09 Dose: Not Given Levothyroxine Sodium (Synthroid) 0.1 mg PO QDAC [facility] Stop: 01/28/17 07:29 Last Admin: 12/03/16 06:34 Dose: 0.1 mg Lisinopril (Zestril) 20 mg PO DAILY [facility] Stop: 01/28/17 08:59 Last Admin: 12/03/16 09:07 Dose: Not Given Loratadine (Claritin) 10 mg PO DAILY [facility] Stop: 01/28/17 08:59 Last Admin: 12/03/16 09:06 Dose: 10 mg Lorazepam (Ativan) 0.5 mg PO Q4HR PRN; Protocol PRN Reason: Anxiety Stop: 12/28/16 00:43 Last Admin: 12/03/16 10:19 Dose: 0.5 mg Magnesium Hydroxide (Milk Of Magnesia) 30 ml PO HS PRN PRN Reason: Constipation Magnesium Oxide (Mag-Oxide) 400 mg PO HS [facility] Stop: 01/27/17 20:59 Last Admin: 12/02/16 20:04 Dose: 400 mg Montelukast Sodium (Singulair) 10 mg PO HS [facility] Stop: 01/27/17 20:59 Last Admin: 12/02/16 20:04 Dose: 10 mg Multivitamins/Vitamin C (Theragran) 1 tab PO DAILY [facility] Stop: 01/28/17 08:59 Last Admin: 12/03/16 09:06 Dose: 1 tab Pantoprazole Sodium (Protonix) 40 mg PO DAILY [facility] Stop: 01/28/17 08:59 Last Admin: 12/03/16 09:06 Dose: 40 mg Sertraline HCl (Zoloft) 50 mg PO DAILY [facility] PRN Reason: Protocol Stop: 01/28/17 08:59 Last Admin: 12/03/16 09:05 Dose: 50 mg Zolpidem Tartrate (Ambien) 5 mg PO HS PRN PRN Reason: Insomnia Stop: 01/27/17 00:43 Last Admin: 12/02/16 20:04 Dose: 5 mg General: alert, obese, NAD HEENT: NC/AT, PERRLA Lungs: CTAB Cardiovascular: RRR, Normal S1, Normal S2, without murmur Abdomen: soft, non-tender, non-distended Extremities: excoriation Neurological: no change, alert Internal Medicine Assmt/Plan - Assessment Assessment: DEPRESSION ASTHMA COPD CHRONIC LOW BACK PAIN CHRONIC LEG PAIN HYPERCHOLESTEREMIA FIBROMYALGIA HTN HYPOTHYROID CHANDAN SINUSITIS CHRONIC SPINAL STENOSIS SCHIZOAFFECTIVE DISORDER - Plan Plan: supplemental o2 as needed bronchodilators continue current tx Nutritional Asmnt/Malnutr-PDOC - Dietary Evaluation Malnutrition Findings (Please click <Entered> for more info): Nutritional Asmnt/Malnutrition Start: 11/29/16 16: 29 Text: Status: Complete Freq: Document 11/29/16 16:29 GSUN (Rec: 11/29/16 16:33 GSUN [email or web address]) Nutritional Asmnt/Malnutrition Patient General Information Nutritional Screening Moderate Risk Screening Diagnosis Reason for visit: psychosis Pertinent Medical Hx/Surgical Hx COPD, asthma, arthritis, acute renal failure, acute respiratory failure, bipolar disorder, depression, fibromyalgia, frequent falls, generalized weakness, HTN, hyperchoelsterolemia, hypothyroid, chronic leg pain, chronic low back pain, sinusitis, chronic spinal stenosis, UTI Subjective Information 66 year old female. Pt ambulates in wheelchair. Pt was alert and pelasant during visit. Pt reported latter-day preferences: no fish, no prok, no caffeine, FNS notified. Pt reported 250lb last year, pt has goal to lose weight, RD emphasized health weight loss goals, pt undersoot and agreed . Pt with good appetite, stated was hungry during visit . Teeth intact. Avg PO intake 100% of meals since adm, meeting nutritional needs. Current Diet Order/ Nutrition Support Low sodium Pertinent Medications Vitamin D3, Hctz, Synthroid, MOM, Mag-Oxide, Theragran, Protonix Pertinent Labs No current labs. Nutritional Hx/Data Height 5 ft 2 in Height (Calculated Centimeters) 157.5 Current Weight (lbs) 191 lb 4.8 oz Weight (Calculated Kilograms) 86.8 Weight (Calculated Grams) 69379.2 Usual body Weight (lbs) 195 [place] Body Weight 110 Weight Status Obese GI Symptoms Cultural/Ethnic/Scientologist Belief Scientologist preference: no pork, no fish, no caffeine. Skin Integrity/Comment: Nghia 19. Skin intact. Current %PO Good (75-100%) Estimated Nutritional Goals BEE in Kcals: Adj wt of IBW Calories/Kcals/Kg AdjBW 130.3lb/59.2kg Kcals Calculated 1480-1776kcal (25-30kcal/kg) Protein: Adj wt of IBW Protein Calculated 59g (1g/kg) Fluid: ml 1480-1776ml (1ml/kcal) Nutritional Problem 1. Problem Problem No nutritional problem at this time. Intervention/Recommendation Comments 1. Continue with current diet order. Avg PO intake is adequate. 2. Discussed health weight loss goals, pt understood and agreeable to plan. Expected Outcomes/Goals Expected Outcomes/Goals 1. PO intake continue to meet at least 75% of estimated nutritional needs.
--- NOTE | 2016-12-03 21:20 | Progress Notes ---
DATE: 12/03/2016 PSYCHIATRIC PROGRESS NOTE TIME PATIENT SEEN: 10:15 a.m. SUBJECTIVE: Staff was spoken to. The patient is interviewed. Mood is noted to be depressed. Affect is constricted. The patient is isolative and withdrawn. Coping skills are noted to be poor at this time. The patient is still complaining that he has been having a lot of problems with the pain. ASSESSMENT: The patient is still depressed. PLAN: To continue the patient with supportive therapy and follow up with close monitoring for any falls. JOB# [id number]
[2016-12-04] MEDS: Albuterol/Ipratropium Neb 3 ML AERS HHN SCH ×4 (01:04→19:13)
[2016-12-04] MEDS: Guaifenesin DM 10 ML UDC PO SCH ×4 (02:10→20:12)
[2016-12-04] MEDS: Levothyroxine 0.1 Mg Tab PO SCH (06:37)
[2016-12-04] MEDS: Budesonide 0.5 Mg/2 mL Ud HHN SCH ×2 (07:29→19:13)
[2016-12-04] MEDS: Polyvinyl Alcohol Ophth Soln 15 mL Bottle EACH EYE SCH ×3 (09:54→21:12)
[2016-12-04] MEDS: Multivitamin Tab PO SCH (09:56)
[2016-12-04] MEDS: Pantoprazole 40 mg EC Tab PO SCH (09:56)
--- NOTE | 2016-12-04 12:46 | Internal Medicine Prog Note ---
Internal Medicine Subjective - Subjective Service Date: 12/04/16 Patient is:: awake Per staff patient has:: no adverse event Internal Medicine Objective - Physical Exam Vitals and I&O: Vital Signs Temp 97.2 F 12/04/16 06:29 Pulse 75 12/04/16 08:27 Resp 16 12/04/16 10:15 BP 123/68 12/04/16 06:29 Pulse Ox 97 12/04/16 08:27 Intake & Output 12/03/16 12/04/16 12/04/16 18:59 06:59 18:59 Intake Total 1000 120 Balance 1000 120 Intake: Oral 1000 120 Other: # Voids 4 2 # Bowel Movements 1 0 Active Medications: Current Medications Acetaminophen (Tylenol) 650 mg PO Q4HR PRN PRN Reason: Mild Pain / Temp above 100 Stop: 01/27/17 00:43 Al Hydrox/Mg Hydrox/Simethicone (Maalox) 30 ml PO Q4HR PRN PRN Reason: GI DISTRESS Stop: 01/27/17 00:43 Albuterol Sulfate (Albuterol 2.5mg/3ml Neb Ud) 2.5 mg HHN Q4HR PRN PRN Reason: Shortness of Breath Stop: 01/27/17 13:56 Last Admin: 11/30/16 19:28 Dose: 2.5 mg Albuterol/Ipratropium (Duoneb Neb) 3 ml HHN Q6HRT [facility] Stop: 01/28/17 18:59 Last Admin: 12/04/16 07:29 Dose: 3 ml Artificial Tears (Artificial Tears Ophth Soln) 1 drop EACH EYE TID [facility] Stop: 01/27/17 20:59 Last Admin: 12/03/16 21:45 Dose: 1 drop Budesonide (Pulmicort) 0.5 mg HHN BIDRT [facility] Stop: 01/27/17 18:59 Last Admin: 12/04/16 07:29 Dose: 0.5 mg Carvedilol (Coreg) 12.5 mg PO BID [facility] Stop: 01/27/17 16:59 Last Admin: 12/03/16 16:27 Dose: 12.5 mg Cholecalciferol (Vitamin D3) 2,000 iu PO DAILY [facility] Stop: 01/28/17 08:59 Last Admin: 12/03/16 09:05 Dose: 2,000 iu Gabapentin (Neurontin) 400 mg PO QID [facility] Stop: 01/27/17 16:59 Last Admin: 12/03/16 21:46 Dose: 400 mg Guaifenesin/Dextromethorphan (Robitussin Dm) 5 ml PO Q6H [facility] Stop: 01/27/17 13:59 Last Admin: 12/04/16 07:00 Dose: 5 ml Hydrochlorothiazide (Hctz) 12.5 mg PO DAILY [facility] Stop: 01/28/17 08:59 Last Admin: 12/03/16 09:07 Dose: Not Given Isosorbide Mononitrate (Imdur) 30 mg PO DAILY [facility] Stop: 01/29/17 08:59 Last Admin: 12/03/16 09:07 Dose: Not Given Lamotrigine (Lamictal) 200 mg PO TID [facility] Stop: 01/27/17 13:59 Last Admin: 12/03/16 21:45 Dose: 200 mg Levothyroxine Sodium (Synthroid) 0.1 mg PO QDAC [facility] Stop: 01/28/17 07:29 Last Admin: 12/04/16 06:37 Dose: 0.1 mg Lisinopril (Zestril) 20 mg PO DAILY [facility] Stop: 01/28/17 08:59 Last Admin: 12/03/16 09:07 Dose: Not Given Loratadine (Claritin) 10 mg PO DAILY [facility] Stop: 01/28/17 08:59 Last Admin: 12/03/16 09:06 Dose: 10 mg Lorazepam (Ativan) 0.5 mg PO Q4HR PRN; Protocol PRN Reason: Anxiety Stop: 12/28/16 00:43 Last Admin: 12/03/16 18:09 Dose: 0.5 mg Magnesium Hydroxide (Milk Of Magnesia) 30 ml PO HS PRN PRN Reason: Constipation Magnesium Oxide (Mag-Oxide) 400 mg PO HS [facility] Stop: 01/27/17 20:59 Last Admin: 12/03/16 21:46 Dose: 400 mg Montelukast Sodium (Singulair) 10 mg PO HS [facility] Stop: 01/27/17 20:59 Last Admin: 12/03/16 21:46 Dose: 10 mg Multivitamins/Vitamin C (Theragran) 1 tab PO DAILY [facility] Stop: 01/28/17 08:59 Last Admin: 12/03/16 09:06 Dose: 1 tab Pantoprazole Sodium (Protonix) 40 mg PO DAILY [facility] Stop: 01/28/17 08:59 Last Admin: 12/03/16 09:06 Dose: 40 mg Sertraline HCl (Zoloft) 50 mg PO DAILY [facility] PRN Reason: Protocol Stop: 01/28/17 08:59 Last Admin: 12/03/16 09:05 Dose: 50 mg Zolpidem Tartrate (Ambien) 5 mg PO HS PRN PRN Reason: Insomnia Stop: 01/27/17 00:43 Last Admin: 12/02/16 20:04 Dose: 5 mg General: alert, obese, NAD HEENT: NC/AT, PERRLA Lungs: CTAB Cardiovascular: RRR, Normal S1, Normal S2, without murmur Abdomen: soft, non-tender, non-distended Extremities: excoriation Neurological: no change, alert Internal Medicine Assmt/Plan - Assessment Assessment: DEPRESSION ASTHMA COPD CHRONIC LOW BACK PAIN CHRONIC LEG PAIN HYPERCHOLESTEREMIA FIBROMYALGIA HTN HYPOTHYROID CHANDAN SINUSITIS CHRONIC SPINAL STENOSIS SCHIZOAFFECTIVE DISORDER - Plan Plan: supplemental o2 as needed bronchodilators continue current tx Nutritional Asmnt/Malnutr-PDOC - Dietary Evaluation Malnutrition Findings (Please click <Entered> for more info): Nutritional Asmnt/Malnutrition Start: 11/29/16 16: 29 Text: Status: Complete Freq: Document 11/29/16 16:29 GSUN (Rec: 11/29/16 16:33 [email or web address] [email or web address]) Nutritional Asmnt/Malnutrition Patient General Information Nutritional Screening Moderate Risk Screening Diagnosis Reason for visit: psychosis Pertinent Medical Hx/Surgical Hx COPD, asthma, arthritis, acute renal failure, acute respiratory failure, bipolar disorder, depression, fibromyalgia, frequent falls, generalized weakness, HTN, hyperchoelsterolemia, hypothyroid, chronic leg pain, chronic low back pain, sinusitis, chronic spinal stenosis, UTI Subjective Information 66 year old female. Pt ambulates in wheelchair. Pt was alert and pelasant during visit. Pt reported christian preferences: no fish, no prok, no caffeine, FNS notified. Pt reported 250lb last year, pt has goal to lose weight, RD emphasized health weight loss goals, pt undersoot and agreed . Pt with good appetite, stated was hungry during visit . Teeth intact. Avg PO intake 100% of meals since adm, meeting nutritional needs. Current Diet Order/ Nutrition Support Low sodium Pertinent Medications Vitamin D3, Hctz, Synthroid, MOM, Mag-Oxide, Theragran, Protonix Pertinent Labs No current labs. Nutritional Hx/Data Height 5 ft 2 in Height (Calculated Centimeters) 157.5 Current Weight (lbs) 191 lb 4.8 oz Weight (Calculated Kilograms) 86.8 Weight (Calculated Grams) 98218.2 Usual body Weight (lbs) 195 [place] Body Weight 110 Weight Status Obese GI Symptoms Cultural/Ethnic/Druze Belief Druze preference: no pork, no fish, no caffeine. Skin Integrity/Comment: Nghia Askew. Skin intact. Current %PO Good (75-100%) Estimated Nutritional Goals BEE in Kcals: Adj wt of IBW Calories/Kcals/Kg AdjBW 130.3lb/59.2kg Kcals Calculated 1480-1776kcal (25-30kcal/kg) Protein: Adj wt of IBW Protein Calculated 59g (1g/kg) Fluid: ml 1480-1776ml (1ml/kcal) Nutritional Problem 1. Problem Problem No nutritional problem at this time. Intervention/Recommendation Comments 1. Continue with current diet order. Avg PO intake is adequate. 2. Discussed health weight loss goals, pt understood and agreeable to plan. Expected Outcomes/Goals Expected Outcomes/Goals 1. PO intake continue to meet at least 75% of estimated nutritional needs.
--- NOTE | 2016-12-05 00:21 | Progress Notes ---
DATE: 12/04/2016 PSYCHIATRIC PROGRESS NOTE TIME PATIENT SEEN: 5:00 p.m. SUBJECTIVE: Staff was spoken to. The patient is interviewed. Mood is very depressed. Affect is constricted. Insight and judgment are noted to be still impaired. Impulse control seems to be limited. The patient is stating that at nighttime that she is not getting the Ambien, has requested and patient has been getting easily frustrated. No side effects to the medications are noted. The patient has been on Lamictal and Zoloft and has been able to tolerate the medication. ASSESSMENT: The patient is still depressed and is not able to cope up with the stress. PLAN: To continue the patient with the current medications and follow. JOB# [id number]
[2016-12-05] MEDS: Guaifenesin DM 10 ML UDC PO SCH ×4 (02:30→21:09)
[2016-12-05] MEDS: Levothyroxine 0.1 Mg Tab PO SCH (06:34)
[2016-12-05] MEDS: Albuterol/Ipratropium Neb 3 ML AERS HHN SCH ×2 (07:20→13:35)
[2016-12-05] MEDS: Budesonide 0.5 Mg/2 mL Ud HHN SCH (07:20)
[2016-12-05] MEDS: Pantoprazole 40 mg EC Tab PO SCH (08:59)
[2016-12-05] MEDS: Polyvinyl Alcohol Ophth Soln 15 mL Bottle EACH EYE SCH ×3 (08:59→20:38)
[2016-12-05] MEDS: Multivitamin Tab PO SCH (09:00)
--- NOTE | 2016-12-05 14:17 | Internal Medicine Prog Note ---
Internal Medicine Subjective - Subjective Service Date: 12/05/16 Patient is:: awake Per staff patient has:: no adverse event Internal Medicine Objective - Physical Exam Vitals and I&O: Vital Signs Temp 98.0 F 12/05/16 07:14 Pulse 65 12/05/16 13:36 Resp 18 12/05/16 13:36 BP 134/67 12/05/16 09:02 Pulse Ox 96 12/05/16 13:36 Intake & Output 12/04/16 12/05/16 12/05/16 18:59 06:59 18:59 Intake Total 680 Balance 680 Intake: Oral 680 Other: # Voids 3 # Bowel Movements 1 Active Medications: Current Medications Acetaminophen (Tylenol) 650 mg PO Q4HR PRN PRN Reason: Mild Pain / Temp above 100 Stop: 01/27/17 00:43 Al Hydrox/Mg Hydrox/Simethicone (Maalox) 30 ml PO Q4HR PRN PRN Reason: GI DISTRESS Stop: 01/27/17 00:43 Albuterol Sulfate (Albuterol 2.5mg/3ml Neb Ud) 2.5 mg HHN Q4HR PRN PRN Reason: Shortness of Breath Stop: 01/27/17 13:56 Last Admin: 11/30/16 19:28 Dose: 2.5 mg Albuterol/Ipratropium (Duoneb Neb) 3 ml HHN Q6HRT [facility] Stop: 01/28/17 18:59 Last Admin: 12/05/16 13:35 Dose: 3 ml Artificial Tears (Artificial Tears Ophth Soln) 1 drop EACH EYE TID [facility] Stop: 01/27/17 20:59 Last Admin: 12/05/16 08:59 Dose: 1 drop Budesonide (Pulmicort) 0.5 mg HHN BIDRT [facility] Stop: 01/27/17 18:59 Last Admin: 12/05/16 07:20 Dose: 0.5 mg Carvedilol (Coreg) 12.5 mg PO BID [facility] Stop: 01/27/17 16:59 Last Admin: 12/05/16 09:02 Dose: Not Given Cholecalciferol (Vitamin D3) 2,000 iu PO DAILY [facility] Stop: 01/28/17 08:59 Last Admin: 12/05/16 09:00 Dose: 2,000 iu Gabapentin (Neurontin) 400 mg PO QID [facility] Stop: 01/27/17 16:59 Last Admin: 12/05/16 09:00 Dose: 400 mg Guaifenesin/Dextromethorphan (Robitussin Dm) 5 ml PO Q6H [facility] Stop: 01/27/17 13:59 Last Admin: 12/05/16 09:00 Dose: 5 ml Hydrochlorothiazide (Hctz) 12.5 mg PO DAILY [facility] Stop: 01/28/17 08:59 Last Admin: 12/05/16 09:01 Dose: 12.5 mg Isosorbide Mononitrate (Imdur) 30 mg PO DAILY [facility] Stop: 01/29/17 08:59 Last Admin: 12/05/16 09:01 Dose: 30 mg Lamotrigine (Lamictal) 200 mg PO TID [facility] Stop: 01/27/17 13:59 Last Admin: 12/05/16 08:59 Dose: 200 mg Levothyroxine Sodium (Synthroid) 0.1 mg PO QDAC [facility] Stop: 01/28/17 07:29 Last Admin: 12/05/16 06:34 Dose: 0.1 mg Lisinopril (Zestril) 20 mg PO DAILY [facility] Stop: 01/28/17 08:59 Last Admin: 12/05/16 09:00 Dose: 20 mg Loratadine (Claritin) 10 mg PO DAILY [facility] Stop: 01/28/17 08:59 Last Admin: 12/05/16 09:00 Dose: 10 mg Lorazepam (Ativan) 0.5 mg PO Q4HR PRN; Protocol PRN Reason: Anxiety Stop: 12/28/16 00:43 Last Admin: 12/05/16 09:00 Dose: 0.5 mg Magnesium Hydroxide (Milk Of Magnesia) 30 ml PO HS PRN PRN Reason: Constipation Magnesium Oxide (Mag-Oxide) 400 mg PO HS [facility] Stop: 01/27/17 20:59 Last Admin: 12/04/16 21:13 Dose: 400 mg Montelukast Sodium (Singulair) 10 mg PO HS [facility] Stop: 01/27/17 20:59 Last Admin: 12/04/16 21:13 Dose: 10 mg Multivitamins/Vitamin C (Theragran) 1 tab PO DAILY [facility] Stop: 01/28/17 08:59 Last Admin: 12/05/16 09:00 Dose: 1 tab Pantoprazole Sodium (Protonix) 40 mg PO DAILY [facility] Stop: 01/28/17 08:59 Last Admin: 12/05/16 08:59 Dose: 40 mg Sertraline HCl (Zoloft) 50 mg PO DAILY [facility] PRN Reason: Protocol Stop: 01/28/17 08:59 Last Admin: 12/05/16 09:00 Dose: 50 mg Zolpidem Tartrate (Ambien) 5 mg PO HS PRN PRN Reason: Insomnia Stop: 01/27/17 00:43 Last Admin: 12/02/16 20:04 Dose: 5 mg General: alert, obese, NAD HEENT: NC/AT, PERRLA Lungs: CTAB Cardiovascular: RRR, Normal S1, Normal S2, without murmur Abdomen: soft, non-tender, non-distended Extremities: excoriation Neurological: no change, alert Internal Medicine Assmt/Plan - Assessment Assessment: DEPRESSION ASTHMA COPD CHRONIC LOW BACK PAIN CHRONIC LEG PAIN HYPERCHOLESTEREMIA FIBROMYALGIA HTN HYPOTHYROID CHANDAN SINUSITIS CHRONIC SPINAL STENOSIS SCHIZOAFFECTIVE DISORDER - Plan Plan: supplemental o2 as needed bronchodilators continue current tx Nutritional Asmnt/Malnutr-PDOC - Dietary Evaluation Malnutrition Findings (Please click <Entered> for more info): Nutritional Asmnt/Malnutrition Start: 11/29/16 16: 29 Text: Status: Complete Freq: Document 11/29/16 16:29 GSUN (Rec: 11/29/16 16:33 GSUN [email or web address]) Nutritional Asmnt/Malnutrition Patient General Information Nutritional Screening Moderate Risk Screening Diagnosis Reason for visit: psychosis Pertinent Medical Hx/Surgical Hx COPD, asthma, arthritis, acute renal failure, acute respiratory failure, bipolar disorder, depression, fibromyalgia, frequent falls, generalized weakness, HTN, hyperchoelsterolemia, hypothyroid, chronic leg pain, chronic low back pain, sinusitis, chronic spinal stenosis, UTI Subjective Information 66 year old female. Pt ambulates in wheelchair. Pt was alert and pelasant during visit. Pt reported mosque preferences: no fish, no prok, no caffeine, FNS notified. Pt reported 250lb last year, pt has goal to lose weight, RD emphasized health weight loss goals, pt undersoot and agreed . Pt with good appetite, stated was hungry during visit . Teeth intact. Avg PO intake 100% of meals since adm, meeting nutritional needs. Current Diet Order/ Nutrition Support Low sodium Pertinent Medications Vitamin D3, Hctz, Synthroid, MOM, Mag-Oxide, Theragran, Protonix Pertinent Labs No current labs. Nutritional Hx/Data Height 5 ft 2 in Height (Calculated Centimeters) 157.5 Current Weight (lbs) 191 lb 4.8 oz Weight (Calculated Kilograms) 86.8 Weight (Calculated Grams) 03294.2 Usual body Weight (lbs) 195 [place] Body Weight 110 Weight Status Obese GI Symptoms Cultural/Ethnic/Confucianism Belief Confucianism preference: no pork, no fish, no caffeine. Skin Integrity/Comment: Nghia 19. Skin intact. Current %PO Good (75-100%) Estimated Nutritional Goals BEE in Kcals: Adj wt of IBW Calories/Kcals/Kg AdjBW 130.3lb/59.2kg Kcals Calculated 1480-1776kcal (25-30kcal/kg) Protein: Adj wt of IBW Protein Calculated 59g (1g/kg) Fluid: ml 1480-1776ml (1ml/kcal) Nutritional Problem 1. Problem Problem No nutritional problem at this time. Intervention/Recommendation Comments 1. Continue with current diet order. Avg PO intake is adequate. 2. Discussed health weight loss goals, pt understood and agreeable to plan. Expected Outcomes/Goals Expected Outcomes/Goals 1. PO intake continue to meet at least 75% of estimated nutritional needs.
[2016-12-05] MEDS: Albuterol Nebulizer 2.5mg/3mL HHN PRN (20:03)
--- NOTE | 2016-12-05 20:56 | Progress Notes ---
DATE: 12/05/2016 PSYCHIATRIC PROGRESS NOTE TIME PATIENT SEEN: 01:15 p.m. SUBJECTIVE: Staff was spoken to. The patient is interviewed. Mood is noted to be irritable. Affect is constricted. The patient is stating that staff are not treating her right, and she is not getting medications as prescribed. The patient's main concern at this time is noted to be pain and the patient is stating that she has been having problem with the anxiety in the middle of the night. The patient is more somatic today. ASSESSMENT: The patient is still depressed. PLAN: To continue the patient with the supportive therapy. I encouraged the patient to verbalize the concerns rather than to act out. [facility]# [id number]
[2016-12-06] MEDS: Guaifenesin DM 10 ML UDC PO SCH ×4 (02:00→21:08)
[2016-12-06] MEDS: Levothyroxine 0.1 Mg Tab PO SCH (06:44)
[2016-12-06] MEDS: Albuterol/Ipratropium Neb 3 ML AERS HHN SCH ×3 (07:52→19:58)
[2016-12-06] MEDS: Budesonide 0.5 Mg/2 mL Ud HHN SCH ×2 (07:52→19:59)
[2016-12-06] MEDS: Polyvinyl Alcohol Ophth Soln 15 mL Bottle EACH EYE SCH ×3 (09:17→21:00)
[2016-12-06] MEDS: Pantoprazole 40 mg EC Tab PO SCH (09:17)
[2016-12-06] MEDS: Multivitamin Tab PO SCH (09:18)
--- NOTE | 2016-12-06 13:12 | Internal Medicine Prog Note ---
Internal Medicine Subjective - Subjective Service Date: 12/06/16 Patient seen and examined:: with staff Patient is:: awake Per staff patient has:: no adverse event Internal Medicine Objective - Physical Exam Vitals and I&O: Vital Signs Temp 97.1 F 12/06/16 06:30 Pulse 66 12/06/16 09:19 Resp 18 12/06/16 11:06 BP 121/79 12/06/16 09:19 Pulse Ox 96 12/06/16 08:01 Intake & Output 12/05/16 12/06/16 12/06/16 18:59 06:59 18:59 Intake Total 850 120 Balance 850 120 Weight (lbs) 188 lb 11.2 oz Intake: Oral 850 120 Other: # Voids 4 3 # Bowel Movements 1 Active Medications: Current Medications Acetaminophen (Tylenol) 650 mg PO Q4HR PRN PRN Reason: Mild Pain / Temp above 100 Stop: 01/27/17 00:43 Al Hydrox/Mg Hydrox/Simethicone (Maalox) 30 ml PO Q4HR PRN PRN Reason: GI DISTRESS Stop: 01/27/17 00:43 Albuterol Sulfate (Albuterol 2.5mg/3ml Neb Ud) 2.5 mg HHN Q4HR PRN PRN Reason: Shortness of Breath Stop: 01/27/17 13:56 Last Admin: 12/05/16 20:03 Dose: 2.5 mg Albuterol/Ipratropium (Duoneb Neb) 3 ml HHN Q6HRT [facility] Stop: 01/28/17 18:59 Last Admin: 12/06/16 07:52 Dose: 3 ml Artificial Tears (Artificial Tears Ophth Soln) 1 drop EACH EYE TID [facility] Stop: 01/27/17 20:59 Last Admin: 12/06/16 09:17 Dose: 1 drop Budesonide (Pulmicort) 0.5 mg HHN BIDRT [facility] Stop: 01/27/17 18:59 Last Admin: 12/06/16 07:52 Dose: 0.5 mg Carvedilol (Coreg) 12.5 mg PO BID [facility] Stop: 01/27/17 16:59 Last Admin: 12/06/16 09:19 Dose: 12.5 mg Cholecalciferol (Vitamin D3) 2,000 iu PO DAILY [facility] Stop: 01/28/17 08:59 Last Admin: 12/06/16 09:17 Dose: 2,000 iu Gabapentin (Neurontin) 400 mg PO QID [facility] Stop: 01/27/17 16:59 Last Admin: 12/06/16 09:18 Dose: 400 mg Guaifenesin/Dextromethorphan (Robitussin Dm) 5 ml PO Q6H [facility] Stop: 01/27/17 13:59 Last Admin: 12/06/16 09:20 Dose: Not Given Hydrochlorothiazide (Hctz) 12.5 mg PO DAILY [facility] Stop: 01/28/17 08:59 Last Admin: 12/06/16 09:18 Dose: 12.5 mg Isosorbide Mononitrate (Imdur) 30 mg PO DAILY [facility] Stop: 01/29/17 08:59 Last Admin: 12/06/16 09:19 Dose: 30 mg Lamotrigine (Lamictal) 200 mg PO TID [facility] Stop: 01/27/17 13:59 Last Admin: 12/06/16 09:17 Dose: 200 mg Levothyroxine Sodium (Synthroid) 0.1 mg PO QDAC [facility] Stop: 01/28/17 07:29 Last Admin: 12/06/16 06:44 Dose: 0.1 mg Lisinopril (Zestril) 20 mg PO DAILY [facility] Stop: 01/28/17 08:59 Last Admin: 12/06/16 09:19 Dose: 20 mg Loratadine (Claritin) 10 mg PO DAILY [facility] Stop: 01/28/17 08:59 Last Admin: 12/06/16 09:17 Dose: 10 mg Lorazepam (Ativan) 0.5 mg PO Q4HR PRN; Protocol PRN Reason: Anxiety Stop: 12/28/16 00:43 Last Admin: 12/05/16 09:00 Dose: 0.5 mg Magnesium Hydroxide (Milk Of Magnesia) 30 ml PO HS PRN PRN Reason: Constipation Magnesium Oxide (Mag-Oxide) 400 mg PO HS [facility] Stop: 01/27/17 20:59 Last Admin: 12/05/16 20:38 Dose: 400 mg Montelukast Sodium (Singulair) 10 mg PO HS [facility] Stop: 01/27/17 20:59 Last Admin: 12/05/16 20:38 Dose: 10 mg Multivitamins/Vitamin C (Theragran) 1 tab PO DAILY [facility] Stop: 01/28/17 08:59 Last Admin: 12/06/16 09:18 Dose: 1 tab Pantoprazole Sodium (Protonix) 40 mg PO DAILY [facility] Stop: 01/28/17 08:59 Last Admin: 12/06/16 09:17 Dose: 40 mg Sertraline HCl (Zoloft) 50 mg PO DAILY [facility] PRN Reason: Protocol Stop: 01/28/17 08:59 Last Admin: 12/06/16 09:18 Dose: 50 mg Zolpidem Tartrate (Ambien) 5 mg PO HS PRN PRN Reason: Insomnia Stop: 01/27/17 00:43 Last Admin: 12/02/16 20:04 Dose: 5 mg General: alert, obese, NAD HEENT: NC/AT, PERRLA Lungs: CTAB Cardiovascular: RRR, Normal S1, Normal S2, without murmur Abdomen: soft, non-tender, non-distended Extremities: excoriation Neurological: no change, alert Internal Medicine Assmt/Plan - Assessment Assessment: DEPRESSION ASTHMA COPD CHRONIC LOW BACK PAIN CHRONIC LEG PAIN HYPERCHOLESTEREMIA FIBROMYALGIA HTN HYPOTHYROID CHANDAN SINUSITIS CHRONIC SPINAL STENOSIS SCHIZOAFFECTIVE DISORDER - Plan Plan: supplemental o2 as needed bronchodilators continue current tx Nutritional Asmnt/Malnutr-PDOC - Dietary Evaluation Malnutrition Findings (Please click <Entered> for more info): Nutritional Asmnt/Malnutrition Start: 11/29/16 16: 29 Text: Status: Complete Freq: Document 11/29/16 16:29 GSUN (Rec: 11/29/16 16:33 GSARNOL [email or web address]) Nutritional Asmnt/Malnutrition Patient General Information Nutritional Screening Moderate Risk Screening Diagnosis Reason for visit: psychosis Pertinent Medical Hx/Surgical Hx COPD, asthma, arthritis, acute renal failure, acute respiratory failure, bipolar disorder, depression, fibromyalgia, frequent falls, generalized weakness, HTN, hyperchoelsterolemia, hypothyroid, chronic leg pain, chronic low back pain, sinusitis, chronic spinal stenosis, UTI Subjective Information 66 year old female. Pt ambulates in wheelchair. Pt was alert and pelasant during visit. Pt reported hindu preferences: no fish, no prok, no caffeine, FNS notified. Pt reported 250lb last year, pt has goal to lose weight, RD emphasized health weight loss goals, pt undersoot and agreed . Pt with good appetite, stated was hungry during visit . Teeth intact. Avg PO intake 100% of meals since adm, meeting nutritional needs. Current Diet Order/ Nutrition Support Low sodium Pertinent Medications Vitamin D3, Hctz, Synthroid, MOM, Mag-Oxide, Theragran, Protonix Pertinent Labs No current labs. Nutritional Hx/Data Height 5 ft 2 in Height (Calculated Centimeters) 157.5 Current Weight (lbs) 191 lb 4.8 oz Weight (Calculated Kilograms) 86.8 Weight (Calculated Grams) 86190.2 Usual body Weight (lbs) 195 [place] Body Weight 110 Weight Status Obese GI Symptoms Cultural/Ethnic/Gnosticist Belief Gnosticist preference: no pork, no fish, no caffeine. Skin Integrity/Comment: Nghia 19. Skin intact. Current %PO Good (75-100%) Estimated Nutritional Goals BEE in Kcals: Adj wt of IBW Calories/Kcals/Kg AdjBW 130.3lb/59.2kg Kcals Calculated 1480-1776kcal (25-30kcal/kg) Protein: Adj wt of IBW Protein Calculated 59g (1g/kg) Fluid: ml 1480-1776ml (1ml/kcal) Nutritional Problem 1. Problem Problem No nutritional problem at this time. Intervention/Recommendation Comments 1. Continue with current diet order. Avg PO intake is adequate. 2. Discussed health weight loss goals, pt understood and agreeable to plan. Expected Outcomes/Goals Expected Outcomes/Goals 1. PO intake continue to meet at least 75% of estimated nutritional needs.
--- NOTE | 2016-12-07 00:12 | Progress Notes ---
DATE: 12/06/2016 SUBJECTIVE: Staff was spoken to. The patient is interviewed. Mood is noted to be anxious. The patient is stating that she has been able to sort out the director of parks and recreation issue and director of parks and recreation is going to be there tomorrow at home and she feels more comfortable at this time. The patient's depression is resolving. The patient is not presenting with any suicidal ideation. Insight and judgment at this time are noted to be improving. Impulse control seems to be fair. No side effects to the medications are noted. ASSESSMENT: The patient's depression is resolving. PLAN: To continue the patient with the current medications and encouraged the patient to verbalize the concerns rather than to act out. If the patient continues to be like this, possibly the patient is going to be discharged tomorrow to be followed up on an outpatient basis. JOB# [id number]
[2016-12-07] MEDS: Albuterol/Ipratropium Neb 3 ML AERS HHN SCH ×3 (00:40→12:47)
[2016-12-07] MEDS: Guaifenesin DM 10 ML UDC PO SCH ×2 (02:00→13:40)
[2016-12-07] MEDS: Levothyroxine 0.1 Mg Tab PO SCH (06:31)
[2016-12-07] MEDS: Budesonide 0.5 Mg/2 mL Ud HHN SCH (07:38)
[2016-12-07] MEDS: Multivitamin Tab PO SCH (08:54)
[2016-12-07] MEDS: Pantoprazole 40 mg EC Tab PO SCH (08:54)
--- NOTE | 2016-12-07 10:57 | Internal Medicine Prog Note ---
Internal Medicine Subjective - Subjective Service Date: 12/07/16 Patient is:: awake Per staff patient has:: no adverse event Internal Medicine Objective - Physical Exam Vitals and I&O: Vital Signs Temp 98.2 F 12/07/16 06:21 Pulse 65 12/07/16 08:53 Resp 18 12/07/16 07:38 BP 154/86 12/07/16 08:54 Pulse Ox 96 12/07/16 07:38 Intake & Output 12/06/16 12/07/16 12/07/16 18:59 06:59 18:59 Intake Total 900 120 Balance 900 120 Intake: Oral 900 120 Other: # Voids 4 3 # Bowel Movements 1 Active Medications: Current Medications Acetaminophen (Tylenol) 650 mg PO Q4HR PRN PRN Reason: Mild Pain / Temp above 100 Stop: 01/27/17 00:43 Last Admin: 12/06/16 18:40 Dose: 650 mg Al Hydrox/Mg Hydrox/Simethicone (Maalox) 30 ml PO Q4HR PRN PRN Reason: GI DISTRESS Stop: 01/27/17 00:43 Albuterol Sulfate (Albuterol 2.5mg/3ml Neb Ud) 2.5 mg HHN Q4HR PRN PRN Reason: Shortness of Breath Stop: 01/27/17 13:56 Last Admin: 12/05/16 20:03 Dose: 2.5 mg Albuterol/Ipratropium (Duoneb Neb) 3 ml HHN Q6HRT [facility] Stop: 01/28/17 18:59 Last Admin: 12/07/16 07:38 Dose: 3 ml Artificial Tears (Artificial Tears Ophth Soln) 1 drop EACH EYE TID [facility] Stop: 01/27/17 20:59 Last Admin: 12/06/16 21:00 Dose: Not Given Budesonide (Pulmicort) 0.5 mg HHN BIDRT [facility] Stop: 01/27/17 18:59 Last Admin: 12/07/16 07:38 Dose: 0.5 mg Carvedilol (Coreg) 12.5 mg PO BID [facility] Stop: 01/27/17 16:59 Last Admin: 12/07/16 08:52 Dose: 12.5 mg Cholecalciferol (Vitamin D3) 2,000 iu PO DAILY [facility] Stop: 01/28/17 08:59 Last Admin: 12/07/16 08:54 Dose: 2,000 iu Gabapentin (Neurontin) 400 mg PO QID [facility] Stop: 01/27/17 16:59 Last Admin: 12/07/16 08:52 Dose: 400 mg Guaifenesin/Dextromethorphan (Robitussin Dm) 5 ml PO Q6H [facility] Stop: 01/27/17 13:59 Last Admin: 12/07/16 02:00 Dose: Not Given Hydrochlorothiazide (Hctz) 12.5 mg PO DAILY [facility] Stop: 01/28/17 08:59 Last Admin: 12/07/16 08:54 Dose: 12.5 mg Isosorbide Mononitrate (Imdur) 30 mg PO DAILY [facility] Stop: 01/29/17 08:59 Last Admin: 12/07/16 08:53 Dose: 30 mg Lamotrigine (Lamictal) 200 mg PO TID [facility] Stop: 01/27/17 13:59 Last Admin: 12/07/16 08:52 Dose: 200 mg Levothyroxine Sodium (Synthroid) 0.1 mg PO QDAC [facility] Stop: 01/28/17 07:29 Last Admin: 12/07/16 06:31 Dose: 0.1 mg Lisinopril (Zestril) 20 mg PO DAILY [facility] Stop: 01/28/17 08:59 Last Admin: 12/07/16 08:52 Dose: 20 mg Loratadine (Claritin) 10 mg PO DAILY [facility] Stop: 01/28/17 08:59 Last Admin: 12/07/16 08:52 Dose: 10 mg Lorazepam (Ativan) 0.5 mg PO Q4HR PRN; Protocol PRN Reason: Anxiety Stop: 12/28/16 00:43 Last Admin: 12/06/16 18:39 Dose: 0.5 mg Magnesium Hydroxide (Milk Of Magnesia) 30 ml PO HS PRN PRN Reason: Constipation Magnesium Oxide (Mag-Oxide) 400 mg PO HS [facility] Stop: 01/27/17 20:59 Last Admin: 12/06/16 21:06 Dose: 400 mg Montelukast Sodium (Singulair) 10 mg PO HS [facility] Stop: 01/27/17 20:59 Last Admin: 12/06/16 21:06 Dose: 10 mg Multivitamins/Vitamin C (Theragran) 1 tab PO DAILY [facility] Stop: 01/28/17 08:59 Last Admin: 12/07/16 08:54 Dose: 1 tab Pantoprazole Sodium (Protonix) 40 mg PO DAILY [facility] Stop: 01/28/17 08:59 Last Admin: 12/07/16 08:54 Dose: 40 mg Sertraline HCl (Zoloft) 50 mg PO DAILY [facility] PRN Reason: Protocol Stop: 01/28/17 08:59 Last Admin: 12/07/16 08:53 Dose: 50 mg Zolpidem Tartrate (Ambien) 5 mg PO HS PRN PRN Reason: Insomnia Stop: 01/27/17 00:43 Last Admin: 12/02/16 20:04 Dose: 5 mg General: alert, obese, NAD HEENT: NC/AT, PERRLA Lungs: CTAB Cardiovascular: RRR, Normal S1, Normal S2, without murmur Abdomen: soft, non-tender, non-distended Extremities: excoriation Neurological: no change, alert Internal Medicine Assmt/Plan - Assessment Assessment: DEPRESSION ASTHMA COPD CHRONIC LOW BACK PAIN CHRONIC LEG PAIN HYPERCHOLESTEREMIA FIBROMYALGIA HTN HYPOTHYROID CHANDAN SINUSITIS CHRONIC SPINAL STENOSIS SCHIZOAFFECTIVE DISORDER - Plan Plan: patient being discharged today supplemental o2 as needed bronchodilators continue current tx Nutritional Asmnt/Malnutr-PDOC - Dietary Evaluation Malnutrition Findings (Please click <Entered> for more info): Nutritional Asmnt/Malnutrition Start: 11/29/16 16: 29 Text: Status: Complete Freq: Document 11/29/16 16:29 GSUN (Rec: 11/29/16 16:33 GSARNOL RICHELLEFN) Nutritional Asmnt/Malnutrition Patient General Information Nutritional Screening Moderate Risk Screening Diagnosis Reason for visit: psychosis Pertinent Medical Hx/Surgical Hx COPD, asthma, arthritis, acute renal failure, acute respiratory failure, bipolar disorder, depression, fibromyalgia, frequent falls, generalized weakness, HTN, hyperchoelsterolemia, hypothyroid, chronic leg pain, chronic low back pain, sinusitis, chronic spinal stenosis, UTI Subjective Information 66 year old female. Pt ambulates in wheelchair. Pt was alert and pelasant during visit. Pt reported anglican preferences: no fish, no prok, no caffeine, FNS notified. Pt reported 250lb last year, pt has goal to lose weight, RD emphasized health weight loss goals, pt undersoot and agreed . Pt with good appetite, stated was hungry during visit . Teeth intact. Avg PO intake 100% of meals since adm, meeting nutritional needs. Current Diet Order/ Nutrition Support Low sodium Pertinent Medications Vitamin D3, Hctz, Synthroid, MOM, Mag-Oxide, Theragran, Protonix Pertinent Labs No current labs. Nutritional Hx/Data Height 5 ft 2 in Height (Calculated Centimeters) 157.5 Current Weight (lbs) 191 lb 4.8 oz Weight (Calculated Kilograms) 86.8 Weight (Calculated Grams) 10291.2 Usual body Weight (lbs) 195 [place] Body Weight 110 Weight Status Obese GI Symptoms Cultural/Ethnic/Holiness Belief Holiness preference: no pork, no fish, no caffeine. Skin Integrity/Comment: Nghia 19. Skin intact. Current %PO Good (75-100%) Estimated Nutritional Goals BEE in Kcals: Adj wt of IBW Calories/Kcals/Kg AdjBW 130.3lb/59.2kg Kcals Calculated 1480-1776kcal (25-30kcal/kg) Protein: Adj wt of IBW Protein Calculated 59g (1g/kg) Fluid: ml 1480-1776ml (1ml/kcal) Nutritional Problem 1. Problem Problem No nutritional problem at this time. Intervention/Recommendation Comments 1. Continue with current diet order. Avg PO intake is adequate. 2. Discussed health weight loss goals, pt understood and agreeable to plan. Expected Outcomes/Goals Expected Outcomes/Goals 1. PO intake continue to meet at least 75% of estimated nutritional needs.
[2016-12-07] MEDS: Polyvinyl Alcohol Ophth Soln 15 mL Bottle EACH EYE SCH (13:40)
--- NOTE | 2016-12-07 20:11 | Progress Notes ---
DATE: 12/07/2016 PSYCHIATRIC PROGRESS NOTE Staff was spoken to. The patient is interviewed. Mood is noted to be less irritable. Affect is appropriate. Not suicidal or homicidal. Insight and judgment are noted to be improving. Impulse control seems to be fair. No side effects to the medications are noted. The patient has been able to participate in the groups and verbalize the concerns. Coping skills are noted to be improving. At this time, the patient is not presenting with any threats to harm self or others. ASSESSMENT: The patient is stabilizing. PLAN: To discharge the patient today for followup on outpatient basis. [facility]# [id number]
== END 2016-12-07 13:20 | disposition home or self-care (01) | DRG 885 ==
LOC: GERO 23:40
PROVIDERS: ADMIT Psychiatry & Neurology Psychiatry; ATTEND Psychiatry & Neurology Psychiatry
DX: F23 Brief psychotic disorder (principal); F32.3 Major depressive disorder, single episode, severe with psychotic features; J44.9 Chronic obstructive pulmonary disease, unspecified; J45.909 Unspecified asthma, uncomplicated; M79.7 Fibromyalgia; I10 Essential (primary) hypertension; E03.9 Hypothyroidism, unspecified; G47.33 Obstructive sleep apnea (adult) (pediatric); J32.9 Chronic sinusitis, unspecified; M48.00 Spinal stenosis, site unspecified; G89.29 Other chronic pain; M54.5 Low back pain; M79.606 Pain in leg, unspecified; E78.00 Pure hypercholesterolemia, unspecified; M19.90 Unspecified osteoarthritis, unspecified site; R29.6 Repeated falls; Z87.440 Personal history of urinary (tract) infections; Z88.6 Allergy status to analgesic agent; Z88.8 Allergy status to other drugs, medicaments and biological substances; Z91.81 History of falling
CPT/HCPCS: 94640; 94760; 97530; J7613; X3904; Z7610